=== PATIENT | male | born 1990 | race Caucasian/White ===

== ENCOUNTER 2016-11-29 07:39 | Emergency (ER) | payer BC, OTHER ==
[2016-11-29 07:47] VITALS: BP 130/82
--- NOTE | 2016-11-29 07:57 | UC ---
Respiratory Complaint HPI - History of Current Complaint Chief Complaint: UCRespiratory Stated Complaint: COUGH,WHEEZING,FEVER Time Seen by Provider: 11/29/16 07:52 Hx Obtained From: Patient Onset/Duration: Sudden Onset, Lasting Days - 5, Worse Since - onset Severity Initially: Mild Severity Currently: Severe Character: Cough: Productive - at night and in the shower Associated Signs And Symptoms: Positive: Dyspnea, Fever, Chills, Wheezing, Nasal Congestion, Hoarseness Related History: Seasonal Allergies - Risk Factors Pulmonary Embolism Risk Factors: Negative Cardiac Risk Factors: Negative - Allergies/Home Medications Allergies/Adverse Reactions: Allergies Allergy/AdvReac Type Severity Reaction Status Date / Time Amoxicillin Allergy Severe Rash Verified 11/29/16 07:47 Methylphenidate Allergy Rash Verified 11/29/16 07:47 [From Ritalin] Home Medications: Home Medications ALPRAZolam TAB* [Xanax TAB*] 2 mg PO TID 11/29/16 [History Confirmed 11/29/16] PMH/Surg Hx/FS Hx/Imm Hx Psychological History: Anxiety - Surgical History Surgical History: None - Family History Known Family History: Positive: Hypertension, Other - prostate CA father Negative: Cardiac Disease, Diabetes - Social History Occupation: Employed Full-time Lives: With Family Alcohol Use: None Substance Use Type: None Smoking Status (MU): Never Smoked Tobacco Type: Smokeless Tobacco Amount Used/How Often: ONCE A DAY Length of Time of Smoking/Using Tobacco: 10 YRS Household Exposure Type: Cigarettes Review of Systems Constitutional: Fever, Chills ENT: Nasal Discharge Respiratory: Shortness Of Breath, Cough All Other Systems Reviewed And Are Negative: Yes Physical Exam Triage Information Reviewed: Yes Appearance: No Pain Distress, Well-Nourished, Ill-Appearing Vital Signs: Initial Vital Signs Temp 98.3 F 11/29/16 07:43 Pulse 85 11/29/16 07:43 Resp 18 11/29/16 07:43 BP 130/82 11/29/16 07:43 Pulse Ox 98 11/29/16 07:43 Vital Signs Reviewed: Yes Eyes: Positive: Conjunctiva Clear ENT: Positive: Pharynx normal, Nasal congestion, TMs normal Neck exam: Normal Respiratory: Positive: Wheezing - Diffuse mild end inspiratory and end expiratory wheezes. Cardiovascular Exam: Normal Musculoskeletal Exam: Normal Neurological Exam: Normal Psychological Exam: Normal Skin Exam: Normal Diagnostic Evaluation - Laboratory O2 Sat by Pulse Oximetry: 98 Respiratory Course/Dx - Differential Dx/Diagnosis Differential Diagnosis/HQI/PQRI: Asthma, Lower Resp Infection, Sinusitis Provider Diagnoses: Acute URI. Acute bronchospasm. Allergic rhinitis Discharge - Discharge Plan Condition: Stable Disposition: HOME Prescriptions: predniSONE TAB* [Deltasone TAB*] 20 mg PO DAILY #18 tab Patient Education Materials: Upper Respiratory Infection (ED), Bronchospasm (ED ), Prednisone (By mouth) Additional Instructions: OTC PR GroupMED SINUS RINSE: CHECK OUT AT [employer] Saline nasal wash helps with mucous, allergies and congestion. It can be used up to twice a day or only as needed. Use lukewarm tap water. It does not have to be sterilized or distilled water. Do 1/3 on each side and snort out of both nostrils. Repeat the process with 1/6 of the bottle on each side with snorting in between to finish the solution in the bottle
[2016-11-29] MEDS ORDERED: Albuterol 2.5 MG/3 ML NEB.SOL* (0.083%) INH ONE (08:05)
[2016-11-29] MEDS ORDERED: Ipratropium 0.5MG/2.5ML NEB* 0.5 MG/2.5 ML NEB.SOLN INH ONE (08:05)
[2016-11-29] MEDS ORDERED: predniSONE TAB* 20 MG PO ONE (08:05)
== END 2016-11-29 08:42 | disposition home or self-care (01) ==
LOC: UCCORT 07:39
DX: J06.9 Acute upper respiratory infection, unspecified (principal); J30.9 Allergic rhinitis, unspecified; J98.01 Acute bronchospasm; Z88.0 Allergy status to penicillin
CPT/HCPCS: 99212; G0463; J7512; J7644